=== PATIENT | female | born 1970 | race Caucasian/White ===

== ENCOUNTER → 2024-10-22 | Day surgery (SDC) | payer OTHER ==
[~2024-10-22] VITALS: Ht 152.4 cm; Wt 66.2 kg
[~2024-10-22] MED LIST: ACETAMINOPHEN WITH CODEINE 300/30MG TABLET PO PRN; ATOR20TA65 PO; BUPIVACAINE HCL/PF 0.5% (5MG/ML) 10ML ONE; CEFAZOLIN SODIUM 1000MG/VIAL ONE; CHOL200026 PO; EMPA25TA PO; FENTANYL CITRATE/PF 50MCG/ML 5ML VIAL ONE; GLIP10TA17 PO; HYDROMORPHONE HCL/PF 2MG/ML INJ IV PRN; LABETALOL 5MG/ML 4ML INJ IV PRN; MEPERIDINE HCL/PF 25MG/ML CPJ IV PRN; MIDAZOLAM HCL 2 MG/2 ML VIAL ONE; PROPOFOL 200MG/20ML VIAL IV ONE; ROCURONIUM BROMIDE 10MG/ML VIAL 5ML IV ONE; SKIN ADHESIVE 0.7 GM EA TOP ONE; SUCCINYLCHOLINE CHLORIDE 200MG/10ML IV ONE; SUGAMMADEX SODIUM 200MG/2ML VIAL IV ONE
[2024-10-22] MEDS: SODIUM CHLORIDE 0.9% 1,000 ML IV SCH (06:41)
[2024-10-22 07:12] LABS: UCG SCREEN NEGATIVE
[2024-10-22] MEDS: ONDANSETRON HCL 4MG/2ML INJ IV PRN (09:32)
[2024-10-22 09:46] VITALS: BP 146/87; PULSE 74; RESP 14
[2024-10-22] MEDS: HYDROMORPHONE HCL/PF 1MG/ML INJ IV PRN (09:46)
== END | disposition home or self-care (01) ==
LOC: OR 05:26
PROVIDERS: ATTEND Surgery
DX: K82.4 Cholesterolosis of gallbladder (principal); K81.1 Chronic cholecystitis; E11.9 Type 2 diabetes mellitus without complications; Z79.899 Other long term (current) drug therapy; Z79.84 Long term (current) use of oral hypoglycemic drugs; Z98.890 Other specified postprocedural states
CPT/HCPCS: 47562; 81025; 82962; 88304; J3010; J0665; J0690; J2250; J2405; J2704; J3490; J0330; J1171; J7030